=== PATIENT | male | born 1965 | race Caucasian/White ===

== ENCOUNTER 2025-07-13 10:20 | Day surgery (SDC) | payer BC ==
[2025-07-11 14:59] VITALS: BMI 31.2
[2025-07-13] MEDS ORDERED: CEFAZOLIN 2 GM VIAL ONE (14:09)
[2025-07-13] MEDS ORDERED: PROPOFOL 20 ML ONE (14:22)
[2025-07-13] MEDS ORDERED: HYDROcodone/Acetaminophen 5/325 mg Tablet ONE (17:07)
== END 2025-07-13 17:15 | disposition home or self-care (01) ==
LOC: CSHSDC 10:20
PROVIDERS: ATTEND Podiatrist Foot & Ankle Surgery
PROC: 0SGN04Z Fusion of Left Metatarsal-Phalangeal Joint with Internal Fixation Device, Open Approach (ICD-10-PCS; principal; 2025-07-13)
DX: M20.22 Hallux rigidus, left foot (principal); I12.9 Hypertensive chronic kidney disease with stage 1 through stage 4 chronic kidney disease, or unspecified chronic kidney disease; N18.30 Chronic kidney disease, stage 3 unspecified; E11.22 Type 2 diabetes mellitus with diabetic chronic kidney disease; Z79.84 Long term (current) use of oral hypoglycemic drugs; Z79.85 Long-term (current) use of injectable non-insulin antidiabetic drugs; Z79.899 Other long term (current) drug therapy
CPT/HCPCS: C1713; J0665; J2704